=== PATIENT | male | born 1950 | race Two or more races ===

== ENCOUNTER 2018-02-15 12:45 | Outpatient (CLI) | payer SELFPAY ==
[~2018-02-15 12:45] MED LIST: ACET325C5 PO; ASPI-1153 PO; CEFT1VIA15 IV; CLOP75TA15 PO; FAMO20TA8 PO; INSU100I14 SQ; INSU100V7 SQ; LISI40TA4 PO; VALS320T16 PO
== END 2018-02-15 23:59 | disposition home health service (06) ==
LOC: WOU 12:45
PROVIDERS: ATTEND Podiatrist Foot & Ankle Surgery
DX: E11.621 Type 2 diabetes mellitus with foot ulcer (principal); L97.426 Non-pressure chronic ulcer of left heel and midfoot with bone involvement without evidence of necrosis; L03.116 Cellulitis of left lower limb; E11.42 Type 2 diabetes mellitus with diabetic polyneuropathy; R60.0 Localized edema; Z79.4 Long term (current) use of insulin; Z79.82 Long term (current) use of aspirin
CPT/HCPCS: 99213; A6402; Z7610; G0463